=== PATIENT | female | born 1950 | race Caucasian/White ===

== ENCOUNTER 2017-07-11 10:05 | Emergency (ER) | payer MEDICARE, OTHER ==
[~2017-07-11] VITALS: Ht 162.6 cm; Wt 92.5 kg
[~2017-07-11 10:05] MED LIST: ALBU2.5V14 NEB; ALBU8.5H6 INH; ALPR0.5T PO; ASPI-630 PO; BUDE10.2 IH; CALC600T4 PO; CHLO4TAB20 PO; CLON0.2T PO; CLON0.3T PO; CYCL10TA2 PO; DIPH25CA3 PO; FLUN8.9H IH; HYDR12.53 PO; IPRA0.2S5 IH; IPRA15SP2 NS; LIPITOR80 MG PO; LISI-338 PO; MONT10TA9 PO; OMAL150V SQ; TIOT18CA IH; TRAM50TA PO; TRIA10.8 NS
[2017-07-11 10:53] LABS: BILIRUBIN,URINE NEGATIVE (NEG); GLUCOSE,URINE NEGATIVE (NEG); NITRITE,URINE NEGATIVE (NEG); PH,URINE 7.5; PROTEIN,URINE NEGATIVE (NEG-TRACE); UROBILINOGEN,URINE 0.2 mg/dL (0.2 mg/dL)
[2017-07-11] MEDS ORDERED: fentaNYL PF VIAL 100 MCG/2 ML VIAL IV PRN (11:00)
[2017-07-11] MEDS ORDERED: ONDANSETRON PF 4 MG/2 ML VIAL. IV ONE (11:00)
[2017-07-11 11:06] LABS: BASO # 0.1 x10^3/uL (0.0-0.2); BASO % 1 % (0-3); EOS % 3 % (0-3); HEMATOCRIT 43.1 % (36.0-47.0); LYMPH # 2.4 x10^3/uL (1.0-4.8); LYMPH % 19 % (24-48); MEAN CORPUSCULAR HEMOGLOBIN 29 pg (25-35); MEAN CORPUSCULAR HGB CONC 33 g/dL (31-37); MEAN CORPUSCULAR VOLUME 88 fL (79-100); MONO % 7 % (0-9); NEUT % 70 % (31-73); PLATELET COUNT 237 x10^3/uL (140-400); RED BLOOD COUNT 4.91 x10^6/uL (3.50-5.40); RED CELL DISTRIBUTION WIDTH 13.7 % (11.5-14.5)
--- NOTE | 2017-07-11 11:06 | ED.ADGEN ---
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 Patient states the pain has been progressively worsening, describes it as radiating from the middle of her left abdomen down to the left lower abdomen, denies any associated nausea or vomiting, any fevers or chills, any urinary complaints. She denies any injuries, states the pain is worse with motion at times, states her last bowel was this morning and was normal. No injuries, no swelling extremities, no recent medication changes or missed doses of medication. Review of Systems Review of Systems Constitutional: Denies fever or chills. [] Eyes: Denies change in visual acuity. [] HENT: Denies nasal congestion or sore throat. [] Respiratory: Denies cough or shortness of breath. [] Cardiovascular: Denies chest pain or edema. [] GI: Left lower quadrant abdominal pain, no nausea, vomiting, bloody stools or diarrhea. [] : Denies dysuria. [] Musculoskeletal: Denies back pain or joint pain. [] Integument: Denies rash. [] Neurologic: Denies headache, focal weakness or sensory changes. [] Endocrine: Denies polyuria or polydipsia. [] Lymphatic: Denies swollen glands. [] Psychiatric: Denies depression or anxiety. [] Current Medications Current Medications Current Medications Medications (Trade) Dose Ordered Sig/Mik Start Time Stop Time Status Last Admin Dose Admin Ceftriaxone Sodium 50 ml @ 100 mls/hr 1X ONCE 07/11/17 14:00 07/11/17 14:00 DC Ciprofloxacin (Cipro) 500 mg 1X ONCE 07/11/17 14:00 07/11/17 14:01 DC 07/11/17 13:47 500 MG Fentanyl Citrate (Fentanyl 2ml Vial) 25 mcg PRN Q15MIN PRN 07/11/17 11:00 07/11/17 14:46 DC Info (Do NOT chart on this entry -- for MONITORING) 1 each PRN DAILY PRN 07/11/17 12:15 07/11/17 14:46 DC Iohexol (Omnipaque 300 Mg/ml) 100 ml 1X ONCE 07/11/17 12:15 07/11/17 12:16 DC 07/11/17 12:23 75 ML Metronidazole (Flagyl) 500 mg 1X ONCE 07/11/17 14:00 07/11/17 14:01 DC 07/11/17 13:46 500 MG Ondansetron HCl (Zofran) 4 mg 1X ONCE 07/11/17 11:00 07/11/17 11:01 DC Allergies Allergies Allergies Coded Allergies Type Severity Reaction Last Updated Verified fentanyl Allergy Severe Anaphylaxis 07/11/17 Yes adhesive tape Allergy Intermediate Rash 06/27/15 Yes codeine Allergy Intermediate Hives 06/27/15 No hydrocodone Adverse Reaction Intermediate Nausea 06/27/15 No Physical Exam Physical Exam Constitutional: Well developed, well nourished, no acute distress, non-toxic appearance. [] HENT: Normocephalic, atraumatic, bilateral external ears normal, oropharynx moist, no oral exudates, nose normal. [] Eyes: PERRLA, EOMI, conjunctiva normal, no discharge. [] Neck: Normal range of motion, no tenderness, supple, no stridor. [] Cardiovascular:Heart rate regular rhythm, no murmur, S1, S2, no rubs or gallops. [] Lungs & Thorax: Bilateral breath sounds clear to auscultation, no wheezing, rhonchi, rales. No chest wall crepitus or tenderness. [] Abdomen: Bowel sounds normal, soft, obese, tenderness palpation in the left lower abdomen, no rebound, rigidity, no guarding, external examination is unremarkable, no masses, no pulsatile masses. [] Skin: Warm, dry, no erythema, no rash. [] Back: No tenderness, no CVA tenderness. [] Extremities: No tenderness, no cyanosis, no clubbing, ROM intact, no edema. [ Negative Homans sign.] Neurologic: Alert and oriented X 3, normal motor function, normal sensory function, no focal deficits noted. [] Psychologic: Affect normal, judgement normal, mood normal. [] Current Patient Data Vital Signs Vital Signs Date Time Temp Pulse Resp B/P (MAP) Pulse Ox O2 Delivery O2 Flow Rate FiO2 07/11/17 14:26 80 20 136/65 (88) 98 Room Air 07/11/17 13:47 3.0 07/11/17 10:10 98.3 98.3 Lab Values Laboratory Tests Test 07/11/17 10:15 07/11/17 10:55 Urine Collection Type Unknown Urine Color Yellow Urine Clarity Clear Urine pH 7.5 Urine Specific [place] <=1.005 Urine Protein Negative mg/dL (NEG-TRACE) Urine Glucose (UA) Negative mg/dL (NEG) Urine Ketones (Stick) Negative mg/dL (NEG) Urine Blood Negative (NEG) Urine Nitrite Negative (NEG) Urine Bilirubin Negative (NEG) Urine Urobilinogen Dipstick 0.2 mg/dL (0.2 mg/dL) Urine Leukocyte Esterase Negative (NEG) Urine RBC 0 /HPF (0-2) Urine WBC 0 /HPF (0-4) Urine Squamous Epithelial Cells Occ /LPF Urine Bacteria 0 /HPF (0-FEW) White Blood Count 13.0 x10^3/uL (4.0-11.0) H Red Blood Count 4.91 x10^6/uL (3.50-5.40) Hemoglobin 14.0 g/dL (12.0-15.5) Hematocrit 43.1 % (36.0-47.0) Mean Corpuscular Volume 88 fL (79-100) Mean Corpuscular Hemoglobin 29 pg (25-35) Mean Corpuscular Hemoglobin Concent 33 g/dL (31-37) Red Cell Distribution Width 13.7 % (11.5-14.5) Platelet Count 237 x10^3/uL (140-400) Neutrophils (%) (Auto) 70 % (31-73) Lymphocytes (%) (Auto) 19 % (24-48) L Monocytes (%) (Auto) 7 % (0-9) Eosinophils (%) (Auto) 3 % (0-3) Basophils (%) (Auto) 1 % (0-3) Neutrophils # (Auto) 9.1 x10^3uL (1.8-7.7) H Lymphocytes # (Auto) 2.4 x10^3/uL (1.0-4.8) Monocytes # (Auto) 0.9 x10^3/uL (0.0-1.1) Eosinophils # (Auto) 0.4 x10^3/uL (0.0-0.7) Basophils # (Auto) 0.1 x10^3/uL (0.0-0.2) Sodium Level 137 mmol/L (136-145) Potassium Level 4.1 mmol/L (3.5-5.1) Chloride Level 99 mmol/L (98-107) Carbon Dioxide Level 34 mmol/L (21-32) H Anion Gap 4 (6-14) L Blood Urea Nitrogen 8 mg/dL (7-20) Creatinine 0.6 mg/dL (0.6-1.0) Estimated GFR (Cockcroft-Gault) 100.0 BUN/Creatinine Ratio 13 (6-20) Glucose Level 116 mg/dL (70-99) H Calcium Level 9.1 mg/dL (8.5-10.1) Total Bilirubin 0.6 mg/dL (0.2-1.0) Aspartate Amino Transferase (AST) 14 U/L (15-37) L Alanine Aminotransferase (ALT) 17 U/L (14-59) Alkaline Phosphatase 80 U/L (46-116) Total Protein 7.0 g/dL (6.4-8.2) Albumin 3.1 g/dL (3.4-5.0) L Albumin/Globulin Ratio 0.8 (1.0-1.7) L Lipase 59 U/L (73-393) L Laboratory Tests 07/11/17 10:55 Laboratory Tests 07/11/17 10:55 EKG EKG 1035: Moderate baseline artifact, sinus rhythm, heart rate 71 beats/minute, QTC of 402, QRS of 96, no ST elevations or depressions, artifact limiting interpretation as stated. Does not meet STEMI criteria. As interpreted by me.[] Radiology/Procedures Radiology/Procedures [][facility] [address] [place], [place] [id number] IMAGING REPORT Signed PATIENT: LANA RUIZ ACCOUNT: [id number] : 1950 LOCATION: ER AGE: 66 SEX: F EXAM STATUS: REG ER ORD. PHYSICIAN: EZEKIEL DHALIWAL DO REASON: LLQ abd pain/history of diverticulitis PROCEDURE: CT ABD PELV W/ IV CONTRST ONLY PQRS Compliance Statement: One or more of the following individualized dose reduction techniques were utilized for this examination: 1. Automated exposure control 2. Adjustment of the mA and/or kV according to patient size 3. Use of iterative reconstruction technique CT ABD PELV W/ IV CONTRST ONLY Clinical Indication: LLQ abd pain 3 days, history of diverticulitis Comparison: None. Technique: Helical CT imaging of the abdomen and pelvis is performed after 75 cc Omnipaque 300 IV contrast. Oral contrast not given. Findings: Three-vessel coronary artery disease. Mitral annular calcification. Cardiac size normal. Mild scarring or atelectasis in the lung bases. Tiny hypodensity in the posterior right hepatic lobe, too small to further characterize, image 21. Liver otherwise homogeneous. There is a linear calcification along the capsule of the lateral spleen. Spleen size normal. Gallbladder, pancreas, and adrenal glands are normal. Moderate atherosclerotic calcification of the abdominal aorta, no aneurysm. Kidneys enhance symmetrically, no hydronephrosis. Small interpolar right renal cyst Evaluation of bowel may be limited without oral contrast. Stomach unremarkable. No dilated small bowel. There is moderate diverticulosis of the descending and sigmoid colon junction. There is inflammation adjacent to diverticula of the descending and sigmoid colon junction, for example image 60. No perforation is identified. There is no peridiverticular abscess. There is no colon wall thickening. The appendix is normal. No abdominal adenopathy. Atrophic uterus. Urinary bladder is normal. No pelvic free fluid. No acute bone abnormality. IMPRESSION: Focal diverticulitis of the descending/sigmoid colon junction. No evidence of microperforation. No peridiverticular abscess. DICTATED and SIGNED BY: YOANDY CHRISTIANSON MD DATE: 07/11/17 1250 CC: EZEKIEL DHALIWAL DO; SUSAN SINGH MD ~ Course & Med Decision Making Course & Med Decision Making Pertinent Labs and Imaging studies reviewed. (See chart for details) Patient with left lower quadrant abdominal pain, which she states is consistent with symptoms she expressed her previous episode of diverticulitis. Patient does not have any recent antibiotic use, denies any diarrhea as stated. Primary complaint is of pain. CT of abdomen and pelvis with IV contrast obtained after discussion with patient, which did reveal evidence of sigmoid colon diverticulitis, patient with leukocytosis of 13.0, is afebrile in the ED, with no vomiting, is declining pain medication or other interventions at this time. I did discuss these findings with patient, did discuss potential for admission to the hospital, patient states that she would prefer to be discharged home to try an outpatient course of antibiotics, she states that she believes she will follow-up with her GI doctor without difficulty, and also states that she does understand concerning symptoms that prompt immediate return to the ED for additional evaluation. Patient received first dose of antibiotics by mouth, metronidazole and ciprofloxacin, in the ED without issue. She continued decline pain medication, on reevaluation, we reiterated concerning symptoms that would prompt return, and importance of follow-up, patient again voices understanding agreement, was discharged home in stable condition with prescriptions and precautions as stated follow-up with her GI physician, and return to the ED for concerning symptoms as discussed. Dragon Disclaimer Dragon Disclaimer This electronic medical record was generated, in whole or in part, using a voice recognition dictation system. Departure Impression: Primary Impression: Diverticulitis Additional Impression: Abdominal pain Disposition: 01 HOME, SELF-CARE Condition: IMPROVED Scripts Oxycodone/Apap 5-325 (PERCOCET 5-325 MG TABLET) 1 Each Tablet 1 TAB PO PRN Q6HRS Y for PAIN, #12 TAB 0 Refills Prov: EZEKIEL DHALIWAL DO 07/11/17 Ondansetron Hcl (ZOFRAN) 4 Mg Tablet 1 TAB PO PRN Q6-8HRS, #12 TAB Prov: EZEKIEL DHALIWAL DO 07/11/17 Ciprofloxacin (Ciprofloxacin) 500 Mg/5 Ml [facility]..rec 500 MG PO BID for 10 Days, #19 MISC One tablet by mouth twice daily for 10 days to treat diverticulitis. First dose given in the emergency department. Prov: EZEKIEL DHALIWAL DO 07/11/17 Metronidazole (METRONIDAZOLE) 500 Mg Tablet 500 MG PO TID for 10 Days, #29 TAB One tablet by mouth 3 times daily for 10 days to treat diverticulitis. First dose given in the emergency department. Prov: EZEKIEL DHALIWAL DO 07/11/17 Problem Qualifiers EZEKIEL DHALIWAL DO Jul 11, 2017 11:06
[2017-07-11 11:12] LABS: BACTERIA,URINE 0 /HPF (0-FEW); RBC,URINE 0 /HPF (0-2); SQUAMOUS EPITHELIAL CELL,UR OCC /LPF; WBC,URINE 0 /HPF (0-4)
[2017-07-11 11:15] LABS: CALCIUM 9.1 mg/dL (8.5-10.1); CREATININE 0.6 mg/dL (0.6-1.0); POTASSIUM 4.1 mmol/L (3.5-5.1)
[2017-07-11 11:21] LABS: ALBUMIN 3.1 g/dL (3.4-5.0); ALBUMIN/GLOBULIN RATIO 0.8 (1.0-1.7); TOTAL BILIRUBIN 0.6 mg/dL (0.2-1.0)
[2017-07-11] MEDS ORDERED: IOHEXOL 300 MG/ML 100ML VIAL. IV ONE (12:15)
[2017-07-11] MEDS ORDERED: CONTRAST GIVEN MC PRN (12:15)
--- NOTE | 2017-07-11 13:04 | RAD ---
PQRS Compliance Statement: One or more of the following individualized dose reduction techniques were utilized for this examination: 1. Automated exposure control 2. Adjustment of the mA and/or kV according to patient size 3. Use of iterative reconstruction technique CT ABD PELV W/ IV CONTRST ONLY Clinical Indication: LLQ abd pain 3 days, history of diverticulitis Comparison: None. Technique: Helical CT imaging of the abdomen and pelvis is performed after 75 cc Omnipaque 300 IV contrast. Oral contrast not given. Findings: Three-vessel coronary artery disease. Mitral annular calcification. Cardiac size normal. Mild scarring or atelectasis in the lung bases. Tiny hypodensity in the posterior right hepatic lobe, too small to further characterize, image 21. Liver otherwise homogeneous. There is a linear calcification along the capsule of the lateral spleen. Spleen size normal. Gallbladder, pancreas, and adrenal glands are normal. Moderate atherosclerotic calcification of the abdominal aorta, no aneurysm. Kidneys enhance symmetrically, no hydronephrosis. Small interpolar right renal cyst Evaluation of bowel may be limited without oral contrast. Stomach unremarkable. No dilated small bowel. There is moderate diverticulosis of the descending and sigmoid colon junction. There is inflammation adjacent to diverticula of the descending and sigmoid colon junction, for example image 60. No perforation is identified. There is no peridiverticular abscess. There is no colon wall thickening. The appendix is normal. No abdominal adenopathy. Atrophic uterus. Urinary bladder is normal. No pelvic free fluid. No acute bone abnormality. IMPRESSION: Focal diverticulitis of the descending/sigmoid colon junction. No evidence of microperforation. No peridiverticular abscess.
[2017-07-11] MEDS ORDERED: CIPROFLOXACIN HCL 250 MG TABLET. PO ONE (14:00)
[2017-07-11] MEDS ORDERED: metroNIDAZOLE 500 MG TABLET PO ONE (14:00)
[2017-07-11 14:26] VITALS: BP 136/65
[2017-07-11] MEDS ORDERED: METR500T8 PO (14:32)
[2017-07-11] MEDS ORDERED: ONDA4TAB7 PO (14:32)
[2017-07-11] MEDS ORDERED: OXYC-323 PO (14:32)
[2017-07-11] MEDS ORDERED: CIPR500S3 PO (14:32)
--- NOTE | 2017-07-12 06:17 | EKG ---
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
== END 2017-07-11 14:40 | disposition home or self-care (01) ==
LOC: ER 10:05
DX: K57.32 Diverticulitis of large intestine without perforation or abscess without bleeding (principal); J44.9 Chronic obstructive pulmonary disease, unspecified; E78.00 Pure hypercholesterolemia, unspecified; I10 Essential (primary) hypertension; E66.9 Obesity, unspecified; Z86.73 Personal history of transient ischemic attack (TIA), and cerebral infarction without residual deficits; Z99.81 Dependence on supplemental oxygen; Z87.01 Personal history of pneumonia (recurrent); Z88.4 Allergy status to anesthetic agent; Z88.5 Allergy status to narcotic agent; Z91.048 Other nonmedicinal substance allergy status; Z68.35 Body mass index [BMI] 35.0-35.9, adult
CPT/HCPCS: 36415; 74177; 80053; 81001; 83690; 85025; 93005; 99285; Q9967

== ENCOUNTER → 2017-10-29 | Outpatient (CLI) | payer MEDICARE, OTHER | END | disposition home or self-care (01) | LOC: KCIC DEXA 10:13 | DX: Z13.820 Encounter for screening for osteoporosis (principal); M85.88 Other specified disorders of bone density and structure, other site; Z78.0 Asymptomatic menopausal state | CPT/HCPCS: 77080 ==

== ENCOUNTER → 2019-11-21 | Outpatient (CLI) | payer MEDICARE ==
[2018-01-13 11:00] VITALS: BP 138/81
[~2019-11-21] MED LIST changes: +CIPR500S3 PO; +DIPH25CA23 PO; -DIPH25CA3 PO; -HYDR12.53 PO; +HYDR12.575 PO; +METR-34 PO; +MONT10TA49 PO; -MONT10TA9 PO; +ONDA4TAB7 PO; +OXYC1TAB15 PO; +VENTOLIN HFA18 GM INH
--- NOTE | 2019-11-21 12:46 | KCIC ---
Bone mineral density exam History: Osteopenia, lumbar fusion, postmenopausal Comparison: 10/29/2017 Findings: Bone mineral density examination utilizing DEXA was performed. Left hip bone mineral density of 0.806 g/cm2 corresponds with a T score -1.1, Z score 0.3. There has been 0.5% increase. The bone mineral density of the lumbar spine was 0.874 g/cm2 which corresponds with a T-score of -1.3, Z score 0.7. There has been -9.6% decrease. By World [employer] on Osteoporosis criteria, a T score of 0 to-1 SD is considered to be within normal limits. A T score of -1 to -2.5 SD is considered osteopenia. A T score less than -2.5 SD is considered osteoporosis Impression: 1. There is osteopenia of the lumbar spine and the left hip. Electronically signed by: Kavon Zarate MD (11/21/2019 12:43 PM) [id number]
== END | disposition home or self-care (01) ==
LOC: KCIC DEXA 11:52
PROVIDERS: ATTEND Nurse Practitioner Women's Health
DX: M85.88 Other specified disorders of bone density and structure, other site (principal); Z78.0 Asymptomatic menopausal state; Z98.1 Arthrodesis status
CPT/HCPCS: 77080